=== PATIENT | female | born 2000 | race Two or more races ===

== ENCOUNTER 2024-06-28 03:16 | Emergency (ER) | payer SELFPAY ==
[2024-06-28 03:17] VITALS: BMI 23.4
--- NOTE | 2024-06-28 03:27 | EKG_ITS ---
[facility] Test Date: 2024-06-28 Pat Name: LAZARUS FERRER Department: Room: - Gender: Female Pan Operator: : 2000 Requested By: Jos Hernández Order Number: [id number] Reading MD: Jos Hernández Measurements Intervals [place] Rate: 95 P: 52 MS: 129 QRS: 75 QRSD: 80 T: 41 QT: 326 QTc: 411 Interpretive Statements SINUS RHYTHM No previous ECG available for comparison /store/S0/[id number]
--- NOTE | 2024-06-28 03:28 | PD.EDRME ---
Rapid Medical Screening Exam RME Arrival date/time: 06/28/24 03:16 23 year old female present to ED for c/o of chest pain . I have greeted and performed a focused initial assessment of this patient. A comprehensive ED assessment and evaluation of the patient, analysis of all test results, and completion of the medical decision making process will be conducted by additional ED providers. Chief Complaint: Chest Pain Time Seen by Provider: 06/28/24 03:21
[2024-06-28 03:35] VITALS: BP 138/90; PULSE 100; RESP 18; TEMP 37.3; O2SAT 98
[2024-06-28 03:40] LABS: Basophils % (Auto) 0 % (0-2.5); Eosinophils # (Auto) 0.1 Thou/mm3 (0.0-0.5); Eosinophils % (Auto) 1 % (0-10); Hematocrit 36.8 % (36.0-46.0); Hemoglobin 12.8 g/dL (12.0-16.0); Immature Granulocytes % (Auto) 0 % (0-0); Immature Granulocytes Auto 0.03 Thou/mm3 (0.00-0.00); Lymphocytes % (Auto) 16 % (10-50); Mean Corpuscular HGB Conc 34.8 g/dl (31.0-37.0); Mean Corpuscular Volume 86 fL (80-100); Monocytes # (Auto) 1.1 Thou/mm3 (0.0-0.8); Monocytes % (Auto) 8 % (0-12); Neutrophils # (Auto) 9.4 Thou/mm3 (1.8-7.7); Neutrophils % (Auto) 75 % (37-80); Nucleated Red Blood Cell % 0 /100 WBC (0); Platelet Count 248 Thou/mm3 (140-440); RDW Standard Deviation 38.2 fL (36.4-46.3); Red Blood Count 4.26 Miln/mm3 (4.00-5.20); White Blood Count 12.6 Thou/mm3 (3.6-11.0)
--- NOTE | 2024-06-28 03:47 | XR_ITS ---
Examination: PA lateral chest 2 views TECHNIQUE: Upright PA lateral chest 2 views Exam date and time: June 28, 2024 0359 hours INDICATIONS: Chest pain today. FINDINGS: Normal heart size Lungs are clear. The osseous structures are intact IMPRESSION: No active disease
[2024-06-28 04:03] LABS: HCG,Qualitative Serum Negative
[2024-06-28 04:19] LABS: Alanine Aminotransferase 9 U/L (10-49); Albumin, Serum 4.5 gm/dL (3.5-5.0); Albumin/Globulin Ratio 1.6 (1.2-2.2); Alkaline Phosphatase 80 U/L (46-116); Anion Gap 6 (7-16); Aspartate Amino Transferase 14 U/L (0-34); BUN/Creatinine Ratio 11 Ratio (12-20); Bilirubin,Total 0.3 mg/dL (0.3-1.2); Blood Urea Nitrogen 10 mg/dL (9-23); Calcium 9.4 mg/dL (8.3-10.6); Calcium (Corrected) 9.4 mg/dL (8.5-10.1); Chloride 104 mMol/L (98-107); Creatinine (Component) 0.9 mg/dL (0.6-1.3); Globulin 2.8 gm/dL (2.3-3.5); Glucose 125 mg/dL (74-106); Osmolality,Calculated 273 (275-295); Potassium 3.5 mMol/L (3.4-5.1); Sodium 137 mMol/L (136-145); Total Protein 7.3 gm/dL (5.7-8.2); Troponin I < 0.002 ng/mL (0.0-0.045); eGFR > 60 See Note
[2024-06-28 04:36] LABS: Thyroid Stimulating Hormone 2.77 uIU/mL (0.55-4.78)
--- NOTE | 2024-06-28 07:14 | EDNOTE_ITS ---
ED Chest Pain RME/HPI General Chief Complaint: Chest Pain Stated Complaint: CHEST PRESSURE RADIATES TO LEFT ARM Time Seen by Provider: 06/28/24 03:21 Arrival date/time: 06/28/24 03:16 23-year-old female with no significant medical problems presents the emergency department complaints of chest pain and left arm pain patient reports pain is worse with movement. Patient reports that she was helping a friend move yesterday and lifting heavy objects Limitations: no limitations RME / HPI RME / HPI narrative: 06/28/24 03:16 23 year old female present to ED for c/o of chest pain . I have greeted and performed a focused initial assessment of this patient. A comprehensive ED assessment and evaluation of the patient, analysis of all test results, and completion of the medical decision making process will be conducted by additional ED providers. Related Data Previous Rx's ?Medication ?Instructions ?Recorded cyclobenzaprine 5 mg tablet 5 mg PO TID PRN muscle spasm #30 06/28/24 tabs ibuprofen 600 mg tablet 600 mg PO Q6H #30 tabs 06/28/24 Allergies Allergy/AdvReac Type Severity Reaction Status Date / Time No Known Allergies Allergy Mild Uncoded 01/21/08 21:30 Review of Systems Review of Systems Systems Reviewed: All systems reviewed, normal except as documented Constitutional Constitutional: Reports system reviewed and no additional complaints, except as documented, Denies fever(s) and Denies headache(s) Eyes Eyes: Reports system reviewed and no additional complaints, except as documented and Denies blurry vision ENT Ears, Nose, Mouth, and Throat: Reports system reviewed and no additional complaints, except as documented, Denies headache(s), Denies nasal congestion and Denies nasal discharge Cardiovascular Cardiovascular: Reports system reviewed and no additional complaints, except as documented, Reports chest pain and Denies dyspnea Respiratory Respiratory: Reports system reviewed and no additional complaints, except as documented, Denies chest congestion, Denies cough and Denies dyspnea Gastrointestinal Gastrointestinal: Reports system reviewed and no additional complaints, except as documented and Denies abdominal pain Integumentary/Breasts Skin/Breast: Reports system reviewed and no additional complaints, except as documented and Denies rash Neurologic Neurologic: Reports system reviewed and no additional complaints, except as documented, Reports as per HPI and Denies headache(s) Past Medical History Social History SMOKING STATUS: Never smoker ED Exam General Limitations: Present no limitations General appearance: Present alert and in no apparent distress Head Head exam: Present atraumatic, normocephalic and normal inspection Eye Eye exam: Present normal appearance, PERRL and EOMI; Absent conjunctival injection ENT ENT exam: Present normal exam, normal oropharynx and mucous membranes moist Neck Neck exam: Present normal inspection, full ROM and trachea midline Chest Chest inspection: Present normal inspection and symmetric chest wall rise Respiratory Respiratory exam: Present normal lung sounds bilaterally; Absent respiratory distress Cardiovascular Cardiovascular exam: Present regular rate, normal rhythm and normal heart sounds Abdominal Exam Abdominal exam: Present soft and normal bowel sounds; Absent distention, tenderness, guarding, rebound or rigidity Extremities Exam Extremities exam: Present normal inspection and full ROM Back Exam Back exam: Present normal inspection and full ROM Neurological Exam Neurological exam: Present alert, oriented X3, CN II-XII intact, normal gait and reflexes normal; Absent motor sensory deficit Psychiatric Psychiatric exam: Present normal affect and normal mood Skin Skin exam: Present warm, dry, intact and normal color Course Quality Measures none Orders Category Date Time Status EKG (ED ONLY) *Do not use* NOW Care 06/28/24 03:27 Completed EKG (ED Only) Stat Exams 06/28/24 03:27 Draft XR chest 2V Stat Exams 06/28/24 03:47 Taken CBC Stat Lab 06/28/24 03:35 Completed CMP [Comprehensive Metabolic Panel] Stat Lab 06/28/24 03:35 Completed HCG,Qualitative Serum Stat Lab 06/28/24 03:35 Completed Mag [Magnesium] Stat Lab 06/28/24 03:35 Completed Thyroid Stimulating Hormone Stat Lab 06/28/24 03:35 Completed Troponin I Stat Lab 06/28/24 03:35 Completed Vital Signs Vital signs: Vital Signs Temperature 99.1 F 06/28/24 03:35 Pulse Rate 100 06/28/24 03:35 Respiratory Rate 18 06/28/24 03:35 Blood Pressure 138/90 H 06/28/24 03:35 Pulse Oximetry (%) 98 06/28/24 03:35 Oxygen Delivery Method Room Air 06/28/24 03:35 O2 saturation 98% room air within normal limits Procedures -ED EKG Interpretation #1: Date of EK06/28/24 Time of EK:39 Rate: 95 Interpretation: Interpreted by me EKG Impression: Normal sinus rhythm, No acute ST-T changes, No ectopy, No ischemic changes, Normal QRS, Normal intervals and Normal axis Chest Pain MDM Narrative MDM Narrative:: 23-year-old female with no significant medical problems presents the emergency department complaints of chest pain and left arm pain patient reports pain is worse with movement. Patient reports that she was helping a friend move yesterday and lifting heavy objects Lab work, chest x-ray, EKG ordered by my colleague Per my interpretation chest x-ray is normal EKG within normal limits lab work unremarkable Patient discharged home in no distress to follow-up with primary care doctor in the next 24 to 48 hours and for any worsening symptoms to return to the ER immediately Patient data External records reviewed:: [facility] previous records Clinical information provided by:: patient Social determinants that could affect healthcare access:: none Patient has the following chronic illnesses:: None How is presenting disease/condition affected by chronic disease/condition?: no chronic disease Evaluation data The following diagnostics were reviewed and interpreted by me:: lab results, radiology exam(s) and EKG tracing(s) Lab and/or radiology exams considered but not ordered:: Labs and radiology obtained Interpretation Summary: Reviewed by me Medications / Prescriptions Medications or Prescriptions considered but not ordered:: Given Medication administrations:: Given Consultations Consultation(s) initiated? (list below): No Diagnosis Chest Pain Differential Diagnosis: fracture of rib, pneumothorax, atypical chest pain, st elevation myocardial infarction and chest pain Most likely diagnosis given after review of the tests above:: Chest pain noncardiac Admission Indicated Admission indicated?: not indicated Admission Request Was there a request for admission?: No Disposition Plan Disposition Plan: Discharge Discharge Attestation Discharge Attestation: The patient and all family members were given an opportunity to ask questions and understood the discharge instructions. Discharge instructions specifically effects, indications for sooner follow up or return to the emergency department, and the expected course of current diagnosis. Patient condition: Stable Discharge Plan Plan Patient Disposition: HOME (Self Care) Disposition Comment: Stable Prescriptions/Referrals Prescriptions/Med Rec: New ibuprofen 600 mg tablet 600 mg PO Q6H Qty: 30 0RF cyclobenzaprine 5 mg tablet 5 mg PO TID PRN (Reason: muscle spasm) Qty: 30 0RF Referrals: Temporary Provider,ED [Primary Care Provider] - In 1 week Problem List Clinical Impression: Chest wall pain Patient/Caregiver Discharge Instructions Education Materials: ED Chest Pain, Noncardiac Additional Instructions: Please follow up with your primary care doctor in the next 24-48hrs for any worsening symptoms return here immediately Print Language: Mongolian Stand Alone Forms: Priyanka Award Info., Patient Portal Info Letter PA/DIRECTOR OF HEALTH EDUCATION Supervising Physician PA/DIRECTOR OF HEALTH EDUCATION Supervising Physician: Dr Gillis
== END 2024-06-28 07:21 | disposition home or self-care (01) ==
PROVIDERS: Physician Assistant; Emergency Provider Emergency Medicine
DX: R07.89 Other chest pain (principal)
CPT/HCPCS: 36415; 71046; 80053; 83735; 84443; 84484; 84703; 85025; 93005; 99283